=== PATIENT | male | born 1960 | race Caucasian/White ===

== ENCOUNTER → 2020-01-12 | Outpatient (CLI) | payer BC ==
[2020-01-12 11:25] LABS: Basophils # (A) 0.1 k/uL (0-0.2); Basophils % (A) 1 %; Eosinophils # (A) 0.2 k/uL (0-0.7); Eosinophils % (A) 4 %; HCT 47.7 % (39.0-53.0); HGB 15.7 gm/dL (13.0-17.5); Lymphocytes # (A) 0.8 k/uL (1.0-4.8); Lymphocytes % (A) 13 %; MCH 30.2 pg (25.0-35.0); MCHC 32.9 g/dL (31.0-37.0); MCV 91.8 fL (80.0-100.0); Mean Platelet Volume 7.8; Monocytes # (A) 0.7 k/uL (0-1.0); Monocytes % (A) 11 %; Neutrophils # (A) 4.6 k/uL (1.3-7.7); Neutrophils % (A) 70 %; Platelet Count 251 k/uL (150-450); RDW 13.3 % (11.5-15.5); WBC 6.6 k/uL (3.8-10.6)
[2020-01-12 11:38] LABS: African American GFR (CKD) >90 (>60 ml/min/1.73 sqM); Anion Gap 9 mmol/L; Blood Urea Nitrogen 18 mg/dL (9-20); Calcium 9.4 mg/dL (8.4-10.2); Carbon Dioxide 26 mmol/L (22-30); Chloride 103 mmol/L (98-107); Glucose 94 mg/dL (74-99); Non-African American GFR(CKD) >90 (>60 ml/min/1.73 sqM); Sodium 138 mmol/L (137-145)
[2020-01-12 12:45] LABS: RBC,Urine >182 /hpf (0-5); WBC,Urine 114 /hpf (0-5)
[2020-01-12 12:46] LABS: Appearance,Urine Bloody (Clear); Color,Urine Dark Red
== END | disposition home or self-care (01) ==
LOC: LABWHC1 10:11
PROVIDERS: ATTEND Urology
DX: Z01.818 Encounter for other preprocedural examination (principal); C67.9 Malignant neoplasm of bladder, unspecified; R31.0 Gross hematuria
CPT/HCPCS: 36415; 80048; 81001; 85025; 87086

== ENCOUNTER 2020-01-21 15:45 | Day surgery (SDC) | payer BC ==
[2020-01-20 10:21] VITALS: BMI 35.6
--- NOTE | 2020-01-21 15:39 | P.HPIHPCON ---
History of Present Illness H&P Date: 01/21/20 Chief Complaint: gross hematuria 59 yo male with hx of gross hematuria, he underwent cystoscopy which showed a ladder tumor, but of note visualization was poor secondary to hematuria and clots. Discussed with him given this finding I recommend we go to the OR for formal cystoscopy in TURBT. Discussed with him the risk which include but not limited to bleeding, infection, injury to the bladder, injury to the ureters. Discussed with him we'll also do bilateral retrograde pyelograms at the same time. He understood all the risk and agreed to proceed with TURBT and bilateral retrograde pyelogram Consent for Procedure: I have explained the operation/procedure to the patient, including the risks, benefits, side effects, alternative therapies (including not receiving the proposed treatment or service), the likelihood of the patient achieving his/her goals, and potential recuperation problems for the procedure/sedation/analgesia, as well as any blood products, if indicated. I also explained to the patient the risks, benefits and side effects of the alternatives, as well as the risks related to not receiving the proposed procedure, care, treatment, or services. - Constitutional Constitutional: Denies chills, Denies fever - Cardiovascular Cardiovascular: Denies chest pain, Denies shortness of breath - Respiratory Respiratory: Denies cough, Denies 7 - Gastrointestinal Gastrointestinal: Denies abdominal pain, Denies diarrhea, Denies nausea, Denies vomiting - Genitourinary (Female) Genitourinary: Denies dysuria, Denies hematuria - Genitourinary (Male) Genitourinary: Denies dysuria, Denies hematuria - Neurological Neurological: Denies numbness, Denies weakness Past Medical History Additional Past Medical History / Comment(s): blood in urine History of Any Multi-Drug Resistant Organisms: None Reported Past Surgical History: Orthopedic Surgery Additional Past Surgical History / Comment(s): repair achilles tendon right leg Past Anesthesia/Blood Transfusion Reactions: No Reported Reaction Smoking Status: Never smoker - Past Family History Father Family Medical History: Cancer Medications and Allergies Home Medications Medication Instructions Recorded Confirmed Type Ascorbic Acid [Vitamin C] 500 mg PO DAILY 01/20/20 01/20/20 History Multivitamins, Thera [Multivitamin 1 tab PO DAILY 01/20/20 01/20/20 History (formulary)] Allergies Allergy/AdvReac Type Severity Reaction Status Date / Time No Known Allergies Allergy Verified 01/20/20 09:54 Surgical - Exam - General well developed, well nourished, no distress - Respiratory normal expansion, normal respiratory effort - Abdomen Abdomen: soft, non tender - Psychiatric oriented to time, oriented to person, oriented to place Assessment and Plan Assessment: 51-year-old male with history of gross hematuria, bladder tumor -OR for TURBT, bilateral retrograde pyelogram
[~2020-01-21 15:45] MED LIST: LIDOCAINE 1% (10MG/ML) FOR IV START INTRADERMA PRN; ONDANSETRON 4 MG/2 ML VIAL ONE
[2020-01-21] MEDS: LACTATED RINGERS 1,000 ML IV SCH ×2 (16:03→19:12)
[2020-01-21] MEDS ORDERED: DEXAMETHASONE SOD PHOSPHATE 10 MG/ML 1 ML VIAL IV ONE (16:04)
[2020-01-21] MEDS ORDERED: NEOSTIGMINE 1 MG/ML 10 ML VIAL ONE (16:20)
[2020-01-21] MEDS ORDERED: fentaNYL (PF) 50 MCG/ML 2 ML AMP ONE (16:20)
[2020-01-21] MEDS ORDERED: PROPOFOL 10 MG/ML 20 ML VIAL IV ONE (16:20)
[2020-01-21] MEDS ORDERED: SUCCINYLCHOLINE CHLORIDE 100 MG/5 ML SYR IV ONE (16:20)
[2020-01-21] MEDS ORDERED: GLYCOPYRROLATE 0.2 MG/ML 2 ML VIAL ONE (16:20)
[2020-01-21] MEDS ORDERED: LIDOCAINE 1% INJ 10MG/ML (20 ML MDV) ONE (16:20)
[2020-01-21] MEDS ORDERED: ROCURONIUM 10 MG/ML (10 ML VIAL) IV ONE (16:20)
[2020-01-21] MEDS ORDERED: MIDAZOLAM 2 MG/2 ML VIAL ONE (16:20)
[2020-01-21] MEDS ORDERED: IOPAMIDOL-370 50ML BTL MISCELLANE ONE ×2 (16:59→17:22)
--- NOTE | 2020-01-21 18:12 | P.OP ---
Date of Procedure: 01/21/20 Preoperative Diagnosis: bladder tumor Postoperative Diagnosis: same Procedure(s) Performed: TURBT, bilateral reterograde pyelogram and left ureteral stent placement Implants: 6Fr X 26 cm stent left on string Anesthesia: DIOGO Surgeon: Placido Jarrell Estimated Blood Loss (ml): 20 Pathology: other (Bladder tumor) Condition: stable Disposition: PACU Indications for Procedure: 59 yo male with hx of gross hematuria, he underwent cystoscopy which showed a ladder tumor, but of note visualization was poor secondary to hematuria and clots. Discussed with him given this finding I recommend we go to the OR for formal cystoscopy in TURBT. Discussed with him the risk which include but not limited to bleeding, infection, injury to the bladder, injury to the ureters. Discussed with him we'll also do bilateral retrograde pyelograms at the same time. He understood all the risk and agreed to proceed with TURBT and bilateral retrograde pyelogram Operative Findings: Large bladder tumor involving the left trigone extending along the left lateral wall and only the left bladder neck, tumor was covering the left ureteral orifice Description of Procedure: patient was brought to the operating room, general anesthesia was induced. He was prepped and draped in sterile fashion and placed in a dorsal lithotomy position. Resectoscope fitted 25 sheath was inserted per urethra, cystoscopy was performed showed a large tumor involving the left lateral wall, left trigone, left bladder neck. Using the bipolar resectoscope the tumor was resected down to muscle, the area of resection was thoroughly fulgurated. The left lateral lobe of the prostate was also resected in order to be able to resect the tumor involving the left bladder neck. Of note the left ureteral orifice could not be visualized, secondary to tumor covering it. caution was take to not fulgurate the region of UA. The specimen was removed and sent to pathology. Repeat cystoscopy showed no area of bleeding or any residual tumor. At this time the resectoscope was removed and a a rigid cystoscope fitted with a 21-Kyrgyz sheath was inserted per urethra. The right ureteral orifice was visualized and intubated with a 6-Kyrgyz open-ended catheter, retrograde pyelogram was performed showed no filling defect, or hydronephrosis. At this time attention was carried to the left ureteral orifice, I was able to visualize the opening of the ureteral orifice within the resection site. Using a 6-Kyrgyz open-ended catheter was intubated, and retrograde pyelogram was performed which showed no filling defect or hydronephrosis. Next a sensor wire was advanced through the catheter catheter was removed with the wire in place. Next a 6- [place]yr[place]z by 26 cm stent was passed over the wire, the proximal curl was visualized on fluoroscopy and distal curl was visualized using the cystoscope. The stent was left on a string. Next a 20-Kyrgyz catheter was placed with return of clear urine. The stent string was taped to the catheter. The patient was awakened from anesthesia and taken to recovery in stable condition
[2020-01-21] MEDS ORDERED: HYDROmorphone 0.5 MG/0.5 ML SYRINGE IVP ONE (18:48)
[2020-01-21] MEDS ORDERED: LACTATED RINGERS 1,000 ML IV ONE (20:10)
[2020-01-21 20:23] LABS: Basophils # (A) 0.1 k/uL (0-0.2); Basophils % (A) 1 %; Eosinophils # (A) 0.1 k/uL (0-0.7); Eosinophils % (A) 1 %; HCT 41.7 % (39.0-53.0); HGB 14.4 gm/dL (13.0-17.5); Lymphocytes # (A) 0.7 k/uL (1.0-4.8); Lymphocytes % (A) 6 %; MCHC 34.5 g/dL (31.0-37.0); MCV 89.9 fL (80.0-100.0); Mean Platelet Volume 7.4; Monocytes # (A) 0.2 k/uL (0-1.0); Monocytes % (A) 1 %; Neutrophils # (A) 10.1 k/uL (1.3-7.7); Neutrophils % (A) 91 %; Platelet Count 222 k/uL (150-450); RBC 4.64 m/uL (4.30-5.90); RDW 12.5 % (11.5-15.5); WBC 11.1 k/uL (3.8-10.6)
[2020-01-21] MEDS ORDERED: HYDROcodone/APAP 5-325MG 1 EACH TAB PO PRN (20:29)
[2020-01-21] MEDS ORDERED: ONDANSETRON 4 MG/2 ML VIAL IVP PRN (20:29)
[2020-01-21 20:34] LABS: African American GFR (CKD) >90 (>60 ml/min/1.73 sqM); Anion Gap 6 mmol/L; Blood Urea Nitrogen 17 mg/dL (9-20); Carbon Dioxide 25 mmol/L (22-30); Chloride 109 mmol/L (98-107); Glucose 116 mg/dL (74-99); Non-African American GFR(CKD) >90 (>60 ml/min/1.73 sqM); Potassium 4.5 mmol/L (3.5-5.1); Sodium 140 mmol/L (137-145)
--- NOTE | 2020-01-21 20:38 | US ---
EXAMINATION TYPE: US kidneys/renal and bladder DATE OF EXAM: 01/21/2020 COMPARISON: NONE CLINICAL HISTORY: URINARY RETENTION/POST OP PAIN. bilateral retrograde pyelogram-left stent placement today EXAM MEASUREMENTS: Right Kidney: 11.6 x 6.4 x 5.1 cm Left Kidney: 11.4 x 6.5 x 6.4 cm Right Kidney: No hydronephrosis or masses seen Left Kidney: No hydronephrosis or masses seen Bladder: Not distended, patient has a martinez catheter There is no evidence for hydronephrosis at this point in time. No nephrolithiasis is seen. No moshe s are identified. IMPRESSION: No evidence of renal mass or obstruction.
[2020-01-21] MEDS ORDERED: SODIUM CHLORIDE 0.9% 1,000 ML IV ONE (20:44)
[2020-01-21] MEDS: SODIUM CHLORIDE 0.9% 1,000 ML IV SCH (22:26)
[2020-01-22 05:35] VITALS: PULSE 81
[2020-01-22] MEDS: SODIUM CHLORIDE 0.9% 1,000 ML IV SCH (06:32)
[2020-01-22 07:53] VITALS: BP 112/61; RESP 20; TEMP 98.1
--- NOTE | 2020-01-22 10:34 | P.DS ---
Providers Date of admission: 12/22/2019 Expected date of discharge: 01/22/20 Attending physician: Placido Jarrell MD Primary care physician: ELENA Gomez Hospital Course: The patient is a 59-year-old male who was recently evaluated due to gross hematuria and noted to have a large bladder tumor. He underwent transurethral resection of the tumor under anesthesia on the date of admission. The tumor obscured the left ureteral orifice. Bilateral retrograde pyelograms were performed at the time of the procedure and a left double-J catheter was placed as the resection involved the left ureteral orifice. The patient had some bladd er spasms overnight but his urine is clear. He will be discharged with the catheter in place and will be seen back in follow-up in 4-5 days. His pathology report may be available at that time. Procedures: Transurethral resection of prostate, bilateral retrograde pyeloureterograms and placement of left double-J catheter 01/21/2020 Patient Condition at Discharge: Good Plan - Discharge Summary Discharge Rx Participant: Yes New Discharge Prescriptions: New Ciprofloxacin HCl [Cipro] 250 mg PO Q12HR 1 Days #2 tab Ibuprofen 600 mg PO Q6H PRN #20 tab PRN Reason: Pain No Action Multivitamins, Thera [Multivitamin (formulary)] 1 tab PO DAILY Ascorbic Acid [Vitamin C] 500 mg PO DAILY Discharge Medication List Ascorbic Acid [Vitamin C] 500 mg PO DAILY 01/20/20 [History] Multivitamins, Thera [Multivitamin (formulary)] 1 tab PO DAILY 01/20/20 [History] Ciprofloxacin HCl [Cipro] 250 mg PO Q12HR 1 Days #2 tab 01/21/20 [Rx] Ibuprofen 600 mg PO Q6H PRN #20 tab 01/21/20 [Rx] Follow up Appointment(s)/Referral(s): Placido Jarrell MD [STAFF PHYSICIAN] - 01/26/20 Patient Instructions/Handouts: *[facility] - Cystoscopy Discharge Instructions, *[facility] - (Anesthesia) Discharge Instructions Outpatient Surgery, Transurethral Resection of Bladder Tumors (DC) Activity/Diet/Wound Care/Special Instructions: Drink plenty of fluid You may see some blood in the urine No heavy lifting or straining for 2 weeks No driving while catheter in place Discharge Disposition: HOME SELF-CARE
--- NOTE | 2020-01-23 19:53 | FL ---
EXAMINATION TYPE: FL urography retrograde DATE OF EXAM: 01/21/2020 FLUOROSCOPY Fluoroscopy time of 17 seconds was used during bilateral retrograde myelogram with left-sided stent p lacement. 6 image/s document/s the procedure.
== END 2020-01-22 11:50 | disposition home or self-care (01) ==
LOC: OR 15:45 → 1SOBS 20:06 → OR 01-22 11:50
PROVIDERS: ATTEND Urology
DX: C67.0 Malignant neoplasm of trigone of bladder (principal); Z98.890 Other specified postprocedural states; Z80.9 Family history of malignant neoplasm, unspecified
CPT/HCPCS: 80048; 85025; 88307; 74420; 76770; 52235; C2625; C1758; C1769; J2250; J1100; J2710; J0690; J2405; J2001; J3010; J0330; J2704; J1170; Q9967

== ENCOUNTER 2020-02-29 10:32 | Emergency (ER) | payer BC ==
[2020-02-29 10:41] VITALS: TEMP 98.4
[2020-02-29] MEDS ORDERED: SODIUM CHLORIDE 0.9% 1,000 ML IV STA (10:58)
--- NOTE | 2020-02-29 11:01 | ED ---
General Adult HPI - General Chief complaint: Syncope Stated complaint: Syncope Time Seen by Provider: 02/29/20 10:38 Source: patient, EMS, RN notes reviewed, old records reviewed Mode of arrival: EMS Limitations: no limitations - History of Present Illness Initial comments: 59-year-old male with stage IV bladder cancer presenting for evaluation of synco pe, collapse. Patient states he was lying on the couch, began feeling lightheaded, nauseous, and ultimately passed out striking his head on a trashcan, right side of his head. He is currently on chemotherapy which she received his first treatment on on February 22. He states he has been eating and drinking well. No vomiting no diarrhea. He denies pain complaints including no chest pain or abdominal pain. No palpitations. He states he previously had hematuria but this has cleared up - Related Data Home Medications Medication Instructions Recorded Confirmed Prochlorperazine [Compazine] 10 mg PO Q6H 02/29/20 02/29/20 dexAMETHasone [Dexamethasone] 4 mg PO DIRECTED 02/29/20 02/29/20 ondansetron HCL [Zofran] 8 mg PO TID PRN 02/29/20 02/29/20 Previous Rx's Medication Instructions Recorded Cephalexin [Keflex] 500 mg PO Q12HR #20 cap 02/29/20 Allergies Allergy/AdvReac Type Severity Reaction Status Date / Time No Known Allergies Allergy Verified 02/29/20 12:05 Review of Systems ROS Statement: Those systems with pertinent positive or pertinent negative responses have been documented in the HPI. ROS Other: All systems not noted in ROS Statement are negative. Past Medical History Additional Past Medical History / Comment(s): recent dx bladder ca last chem was 02/23/20 History of Any Multi-Drug Resistant Organisms: None Reported Past Surgical History: Orthopedic Surgery Additional Past Surgical History / Comment(s): repair achilles tendon right leg, tumors removed from bladder Past Anesthesia/Blood Transfusion Reactions: No Reported Reaction Past Psychological History: No Psychological Hx Reported Smoking Status: Never smoker Past Alcohol Use History: Rare Past Drug Use History: None Reported - Past Family History Father Family Medical History: Cancer General Exam Limitations: no limitations General appearance: alert, in no apparent distress Head exam: Present: normocephalic, other (Abrasion, right orbital rim and midline forehead, no repairable laceration) Eye exam: Present: PERRL, EOMI, periorbital swelling ENT exam: Present: mucous membranes dry Neck exam: Present: normal inspection. Absent: tenderness, meningismus Respiratory exam: Present: normal lung sounds bilaterally. Absent: respiratory distress, wheezes Cardiovascular Exam: Present: regular rate, normal rhythm GI/Abdominal exam: Present: soft. Absent: distended, tenderness, guarding Extremities exam: Present: normal inspection, normal capillary refill. Absent: pedal edema, calf tenderness Neurological exam: Present: alert, oriented X3, CN II-XII intact. Absent: motor sensory deficit Psychiatric exam: Present: normal affect, normal mood Skin exam: Present: warm, dry. Absent: cyanosis, diaphoretic Course Vital Signs 02/29/20 02/29/20 02/29/20 10:34 11:38 12:55 Temperature 98.4 F Pulse Rate 66 73 74 Respiratory 16 18 18 Rate Blood Pressure 91/91 107/71 112/74 O2 Sat by Pulse 100 100 100 Oximetry - Reevaluation(s) Reevaluation #1: 02/29/20 13:57 I did discuss case with the patient's oncologist at cancer [place] Dr. Madsen. Agrees with increased hydration and outpatient follow-up EKG Findings - EKG Comments: EKG Findings:: EKG: Normal sinus rhythm, rate of 60, OK interval 136, QRS durat ion 88, QTC 442, no ST segment elevation. Medical Decision Making - Medical Decision Making 59-year-old male presenting with syncope, recent diagnosis of stage IV bladder cancer on chemotherapy. Patient does appear dehydrated, marginal blood pressure on arrival. This responds well to hydration. Chest x-ray showing a nodularity in the lungs which is known to this patient. Head CT is negative for intracranial hemorrhage status post fall. Patient significantly improved with hydration. He does have a urinalysis showing several white cells as well as red cells, culture will be obtained in the meantime the patient will be prescribed antibiotics. He has an appointment tomorrow with his oncologist. He is able to drink in the emergency department and is feeling back to normal. Eager for discharge. - Lab Data Result diagrams: 02/29/20 11:14 02/29/20 11:14 Lab Results 02/29/20 02/29/20 02/29/20 Range/Units 11:14 11:14 11:14 WBC 6.7 (3.8-10.6) k/uL RBC 4.39 (4.30-5.90) m/uL Hgb 13.8 (13.0-17.5) gm/dL Hct 39.2 (39.0-53.0) % MCV 89.4 (80.0-100.0) fL MCH 31.5 (25.0-35.0) pg MCHC 35.2 (31.0-37.0) g/dL RDW 12.7 (11.5-15.5) % Plt Count 156 (150-450) k/uL MPV 7.7 Neutrophils % 83 % Lymphocytes % 13 % Monocytes % 1 % Eosinophils % 3 % Basophils % 0 % Neutrophils # 5.5 (1.3-7.7) k/uL Lymphocytes # 0.9 L (1.0-4.8) k/uL Monocytes # 0.1 (0-1.0) k/uL Eosinophils # 0.2 (0-0.7) k/uL Basophils # 0.0 (0-0.2) k/uL PT 10.3 (9.0-12.0) sec INR 1.0 (<1.2) APTT 18.2 L (22.0-30.0) sec Sodium (137-145) mmol/L Potassium (3.5-5.1) mmol/L Chloride (98-107) mmol/L Carbon Dioxide (22-30) mmol/L Anion Gap mmol/L BUN (9-20) mg/dL Creatinine (0.66-1.25) mg/dL Est GFR (CKD-EPI)AfAm (>60 ml/min/1.73 sqM) Est GFR (CKD-EPI)NonAf (>60 ml/min/1.73 sqM) Glucose (74-99) mg/dL Calcium (8.4-10.2) mg/dL Magnesium (1.6-2.3) mg/dL Total Bilirubin (0.2-1.3) mg/dL AST (17-59) U/L ALT (4-49) U/L Alkaline Phosphatase (38-126) U/L Troponin I (0.000-0.034) ng/mL Total Protein (6.3-8.2) g/dL Albumin (3.5-5.0) g/dL Urine Color Yellow Urine Appearance Clear (Clear) Urine pH 7.0 (5.0-8.0) Ur Specific [place] 1.018 (1.001-1.035) Urine Protein 1+ H (Negative) Urine Glucose (UA) Trace H (Negative) Urine Ketones Negative (Negative) Urine Blood Trace H (Negative) Urine Nitrite Negative (Negative) Urine Bilirubin Negative (Negative) Urine Urobilinogen <2.0 (<2.0) mg/dL Ur Leukocyte Esterase Moderate H (Negative) Urine RBC 11 H (0-5) /hpf Urine WBC 45 H (0-5) /hpf Ur Squamous Epith Cells <1 (0-4) /hpf Urine Mucus Rare H (None) /hpf 02/29/20 02/29/20 Range/Units 11:14 11:14 WBC (3.8-10.6) k/uL RBC (4.30-5.90) m/uL Hgb (13.0-17.5) gm/dL Hct (39.0-53.0) % MCV (80.0-100.0) fL MCH (25.0-35.0) pg MCHC (31.0-37.0) g/dL RDW (11.5-15.5) % Plt Count (150-450) k/uL MPV Neutrophils % % Lymphocytes % % Monocytes % % Eosinophils % % Basophils % % Neutrophils # (1.3-7.7) k/uL Lymphocytes # (1.0-4.8) k/uL Monocytes # (0-1.0) k/uL Eosinophils # (0-0.7) k/uL Basophils # (0-0.2) k/uL PT (9.0-12.0) sec INR (<1.2) APTT (22.0-30.0) sec Sodium 136 L (137-145) mmol/L Potassium 3.9 (3.5-5.1) mmol/L Chloride 103 (98-107) mmol/L Carbon Dioxide 27 (22-30) mmol/L Anion Gap 6 mmol/L BUN 21 H (9-20) mg/dL Creatinine 0.70 (0.66-1.25) mg/dL Est GFR (CKD-EPI)AfAm >90 (>60 ml/min/1.73 sqM) Est GFR (CKD-EPI)NonAf >90 (>60 ml/min/1.73 sqM) Glucose 104 H (74-99) mg/dL Calcium 9.0 (8.4-10.2) mg/dL Magnesium 1.9 (1.6-2.3) mg/dL Total Bilirubin 1.2 (0.2-1.3) mg/dL AST 39 (17-59) U/L ALT 61 H (4-49) U/L Alkaline Phosphatase 58 (38-126) U/L Troponin I <0.012 (0.000-0.034) ng/mL Total Protein 6.1 L (6.3-8.2) g/dL Albumin 3.5 (3.5-5.0) g/dL Urine Color Urine Appearance (Clear) Urine pH (5.0-8.0) Ur Specific [place] (1.001-1.035) Urine Protein (Negative) Urine Glucose (UA) (Negative) Urine Ketones (Negative) Urine Blood (Negative) Urine Nitrite (Negative) Urine Bilirubin (Negative) Urine Urobilinogen (<2.0) mg/dL Ur Leukocyte Esterase (Negative) Urine RBC (0-5) /hpf Urine WBC (0-5) /hpf Ur Squamous Epith Cells (0-4) /hpf Urine Mucus (None) /hpf Disposition Clinical Impression: Dehydration, Syncope, UTI (urinary tract infection) Disposition: HOME SELF-CARE Condition: Fair Instructions (If sedation given, give patient instructions): Syncope (ED), Dehydration (ED), Urinary Tract Infection in Men (ED) Prescriptions: Cephalexin [Keflex] 500 mg PO Q12HR #20 cap Is patient prescribed a controlled substance at d/c from ED?: No Referrals: Savannah Velazquez NPC [Primary Care Provider] - 1-2 days Time of Disposition: 13:59
[2020-02-29 11:39] LABS: Basophils % (A) 0 %; Eosinophils # (A) 0.2 k/uL (0-0.7); Eosinophils % (A) 3 %; HCT 39.2 % (39.0-53.0); HGB 13.8 gm/dL (13.0-17.5); Lymphocytes # (A) 0.9 k/uL (1.0-4.8); Lymphocytes % (A) 13 %; MCH 31.5 pg (25.0-35.0); MCHC 35.2 g/dL (31.0-37.0); MCV 89.4 fL (80.0-100.0); Mean Platelet Volume 7.7; Monocytes # (A) 0.1 k/uL (0-1.0); Monocytes % (A) 1 %; Neutrophils # (A) 5.5 k/uL (1.3-7.7); Neutrophils % (A) 83 %; Platelet Count 156 k/uL (150-450); RBC 4.39 m/uL (4.30-5.90); RDW 12.7 % (11.5-15.5); WBC 6.7 k/uL (3.8-10.6)
--- NOTE | 2020-02-29 11:41 | CT ---
EXAMINATION TYPE: CT brain wo con DATE OF EXAM: 02/29/2020 COMPARISON: None HISTORY: Syncope CT DLP: 1091.4 mGycm Automated exposure control for dose reduction was used. FINDINGS: Ventricular system is midline without evidence of displacement. No acute hemorrhage or mass effect. C alvarium intact. Tiny hypodensity within the left thalamus likely in the basis of remote lacunar infa rct. Craniocervical junction maintained. Sella turcica has a normal appearance. IMPRESSION: NO ACUTE HEMORRHAGE OR MASS EFFECT.
[2020-02-29 11:42] VITALS: RESP 18
[2020-02-29 11:51] LABS: ALT 61 U/L (4-49); AST 39 U/L (17-59); African American GFR (CKD) >90 (>60 ml/min/1.73 sqM); Albumin 3.5 g/dL (3.5-5.0); Alkaline Phosphatase 58 U/L (38-126); Anion Gap 6 mmol/L; Blood Urea Nitrogen 21 mg/dL (9-20); Carbon Dioxide 27 mmol/L (22-30); Chloride 103 mmol/L (98-107); Glucose 104 mg/dL (74-99); Magnesium 1.9 mg/dL (1.6-2.3); Non-African American GFR(CKD) >90 (>60 ml/min/1.73 sqM); Potassium 3.9 mmol/L (3.5-5.1); Sodium 136 mmol/L (137-145); Total Bilirubin 1.2 mg/dL (0.2-1.3); Total Protein 6.1 g/dL (6.3-8.2)
[2020-02-29 11:54] LABS: Prothrombin Time 10.3 sec (9.0-12.0)
[2020-02-29 11:56] LABS: Partial Thromboplastin Time 18.2 sec (22.0-30.0)
--- NOTE | 2020-02-29 12:24 | XR ---
EXAMINATION TYPE: XR chest 2V DATE OF EXAM: 02/29/2020 COMPARISON: NONE HISTORY: Syncope TECHNIQUE: Frontal and lateral views of the chest are obtained. FINDINGS: Multiple rounded densities are scattered within the lungs. No evident pneumothorax or pleu ral effusion. There may be hilar adenopathy. Bone mineralization is maintained. Heart size within nor mal limits. IMPRESSION: Multiple pulmonary nodules suspected, findings may be indicative of metastatic disease, correlate, consider chest CT
[2020-02-29] MEDS ORDERED: SODIUM CHLORIDE 0.9% 500 ML 500 ML IV ONE (12:27)
[2020-02-29 12:56] VITALS: PULSE 74
[2020-02-29 13:25] VITALS: BP 112/74
[2020-02-29 13:55] LABS: Appearance,Urine Clear (Clear); Bilirubin,Urine Negative (Negative); Blood,Urine Trace (Negative); Color,Urine Yellow; Glucose,Urine (UA) Trace (Negative); Ketones,Urine Negative (Negative); Leukocyte Esterase,Urine Moderate (Negative); Mucus,Urine Rare /hpf; Nitrite,Urine Negative (Negative); Protein,Urine 1+ (Negative); RBC,Urine 11 /hpf (0-5); Specific Gravity,Urine 1.018 (1.001-1.035); Squamous Epithelial Cell,Urine <1 /hpf (0-4); Urobilinogen,Urine <2.0 mg/dL (<2.0); WBC,Urine 45 /hpf (0-5)
== END 2020-02-29 14:07 | disposition home or self-care (01) ==
LOC: EC 10:32
DX: N39.0 Urinary tract infection, site not specified (principal); E86.0 Dehydration; R55 Syncope and collapse; C67.9 Malignant neoplasm of bladder, unspecified
CPT/HCPCS: 36415; 70450; 71046; 80053; 81001; 83735; 84484; 85025; 85610; 85730; 93005; 96360; 99285